=== PATIENT | female | born 1985 | race African-American/Black ===

== ENCOUNTER 2019-11-13 14:43 | Outpatient (CLI) | payer OTHER, SELFPAY ==
--- NOTE | ~2019-11-13 | US_ITS ---
EXAMINATION: US breast LT limited HISTORY: Mastodynia and the upper outer quadrant of the left breast TECHNIQUE: Limited left breast ultrasound was performed. FINDINGS: There are two simple cysts at the 2:00 location near the nipple measuring 7 mm and 6 mm. No suspicious cystic or solid mass is identified. IMPRESSION: Left breast cysts without suspicious mass identified. Further evaluation at this time should be based on clinical assessment. Continued follow-up physical examination is recommended. BI-RADS Category 2: Benign finding(s). Reviewed, dictated and finalized at location A. IMPRESSION: Left breast cysts without suspicious mass identified. Further evaluation at thi s time should be based on clinical assessment. Continued follow-up physical exa mination is recommended. BI-RADS Category 2: Benign finding(s).
== END 2019-11-13 14:44 | disposition home or self-care (01) ==
LOC: ANHIMG 14:52
PROVIDERS: Visit Provider Nurse Practitioner Obstetrics & Gynecology
DX: N64.4 Mastodynia (principal)
CPT/HCPCS: 76642